=== PATIENT | male | born 1980 | race Caucasian/White ===

== ENCOUNTER 2019-01-30 11:34 | Emergency (ER) | payer SELFPAY ==
--- NOTE | 2019-01-30 11:40 | ER Report ---
History and Physical Time Seen By MD: 11:40 HPI/ROS 38 y/o male nonsmoker, but with a history of heavy alcohol use from age [age], presents to the emergency department with worsening ongoing mid epigastric pain and burning that started 2 days ago. Also states that he ate homemade burritos proximately 3 days ago which caused him to have vomiting and a diarrheal illness. The pain in his epigastrium started shortly after. He does feel nauseous, but describes more pain than nausea. He also admits to drinking 3 energy drinks/day starting about one month ago. He says his diet is decent, and he does not eat alot of fast food. No RUQ pain. He describes the pain and midepigastric and to the left. No trauma. Never diagnosed with varices. Stool h as been dark, but he has been taking pepto bismol for days. No hematemesis or hematochezia Allergies: Coded Allergies: No Known Drug Allergies (Unverified , 01/30/19) Reviewed Nurses Notes: Yes Old Medical Records Reviewed: Yes Hx Smoking: No Smoking Status: Never Smoker Exposure to Second Hand Smoke?: No Hx Substance Use Disorder: No Hx Alcohol Use: Yes Constitutional Vital Sign - Last 24 Hours 01/30/19 01/30/19 01/30/19 01/30/19 11:37 11:38 11:54 11:56 Temp 98.1 Pulse 47 56 Resp 16 20 B/P (MAP) 113/80 113/80 (91) 96/65 (75) Pulse Ox 98 98 O2 Delivery Room Air 01/30/19 12:00 B/P (MAP) 99/67 (78) Physical Exam General Appearance: The patient is alert, has no immediate need for airway protection and no current signs of toxicity. Eyes: Pupils equal and round no injection. Respiratory: Chest is non tender, lungs are clear to auscultation. Cardiac: regular rate and rhythm Gastrointestinal: Abdomen is soft with mild TTP at the midepigastric region, bowel sounds normal. Skin: No rashes or lesions. DIFFERENTIAL DIAGNOSIS: After history and physical exam differential diagnosis was considered for abdominal pain including but not limited to appendicitis, cholecystitis, gastritis and urinary tract infection. Medical Decision Making Data Points Result Diagram: 01/30/19 1148 01/30/19 1148 Laboratory Hematology Test 01/30/19 11:48 Red Blood Count 4.98 M/uL (4.00-5.60) Mean Corpuscular Volume 91.6 fL (80.0-96.0) Mean Corpuscular Hemoglobin 31.2 pg (26.0-33.0) Mean Corpuscular Hemoglobin Concent 34.0 g/dL (32.0-36.0) Red Cell Distribution Width 14.0 % (11.5-14.5) Mean Platelet Volume 7.7 fL (7.2-11.1) Neutrophils (%) (Auto) 64.1 % (39.4-72.5) Lymphocytes (%) (Auto) 26.4 % (17.6-49.6) Monocytes (%) (Auto) 7.4 % (4.1-12.4) Eosinophils (%) (Auto) 1.1 % (0.4-6.7) Basophils (%) (Auto) 1.0 % (0.3-1.4) Nucleated RBC Relative Count (auto) 0.0 /100WBC Neutrophils # (Auto) 2.5 K/uL (2.0-7.4) Lymphocytes # (Auto) 1.0 K/uL (1.3-3.6) Monocytes # (Auto) 0.3 K/uL (0.3-1.0) Eosinophils # (Auto) 0.0 K/uL (0.0-0.5) Basophils # (Auto) 0.0 K/uL (0.0-0.1) Nucleated RBC Absolute Count (auto) 0.00 K/uL Sodium Level 144 mmol/L (137-145) Potassium Level 3.7 mmol/L (3.5-5.0) Chloride Level 105 mmol/L (98-107) Carbon Dioxide Level 29 mmol/L (22-30) Blood Urea Nitrogen 14 mg/dl (9-21) Creatinine 0.90 mg/dl (0.66-1.25) Glomerular Filtration Rate Calc > 60.0 Random Glucose 92 mg/dl (75-110) Calcium Level 9.5 mg/dl (8.4-10.2) Total Bilirubin 0.5 mg/dl (0.2-1.3) Aspartate Amino Transf (AST/SGOT) 22 U/L (0-35) Alanine Aminotransferase (ALT/SGPT) 31 U/L (0-56) Alkaline Phosphatase 59 U/L (0-126) Total Protein 7.6 g/dl (6.3-8.2) Albumin 4.7 g/dl (3.5-5.0) Lipase 51 U/L (23-300) Chemistry Test 01/30/19 11:48 White Blood Count 4.0 k/uL (4.5-11.0) Red Blood Count 4.98 M/uL (4.00-5.60) Hemoglobin 15.5 g/dL (14.0-18.0) Hematocrit 45.6 % (42.0-52.0) Mean Corpuscular Volume 91.6 fL (80.0-96.0) Mean Corpuscular Hemoglobin 31.2 pg (26.0-33.0) Mean Corpuscular Hemoglobin Concent 34.0 g/dL (32.0-36.0) Red Cell Distribution Width 14.0 % (11.5-14.5) Platelet Count 236 K/uL (150-450) Mean Platelet Volume 7.7 fL (7.2-11.1) Neutrophils (%) (Auto) 64.1 % (39.4-72.5) Lymphocytes (%) (Auto) 26.4 % (17.6-49.6) Monocytes (%) (Auto) 7.4 % (4.1-12.4) Eosinophils (%) (Auto) 1.1 % (0.4-6.7) Basophils (%) (Auto) 1.0 % (0.3-1.4) Nucleated RBC Relative Count (auto) 0.0 /100WBC Neutrophils # (Auto) 2.5 K/uL (2.0-7.4) Lymphocytes # (Auto) 1.0 K/uL (1.3-3.6) Monocytes # (Auto) 0.3 K/uL (0.3-1.0) Eosinophils # (Auto) 0.0 K/uL (0.0-0.5) Basophils # (Auto) 0.0 K/uL (0.0-0.1) Nucleated RBC Absolute Count (auto) 0.00 K/uL Glomerular Filtration Rate Calc > 60.0 Calcium Level 9.5 mg/dl (8.4-10.2) Total Bilirubin 0.5 mg/dl (0.2-1.3) Aspartate Amino Transf (AST/SGOT) 22 U/L (0-35) Alanine Aminotransferase (ALT/SGPT) 31 U/L (0-56) Alkaline Phosphatase 59 U/L (0-126) Total Protein 7.6 g/dl (6.3-8.2) Albumin 4.7 g/dl (3.5-5.0) Lipase 51 U/L (23-300) ED Course/Re-evaluation ED Course No evidence of GI bleed. H/H normal and dark stool explained by pepto bismol. No evidence of gall bladder disease. No pancreatitis. No evidence of perforated ulcer. I spoke with the pt. about getting an endoscopy, but he does not have medical insurance. We spoke about trying to change his diet, and if symptoms persist, he will follow up for the endoscopy as an outpt. Decision to Disposition Date: Jan 30, 2019 Decision to Disposition Time: 15:15 Depart Departure Latest Vital Signs Vital Signs Date Time Temp Pulse Resp B/P (MAP) Pulse Ox O2 Delivery O2 Flow Rate FiO2 01/30/19 12:00 99/67 (78) 01/30/19 11:54 56 20 98 01/30/19 11:37 98.1 Room Air Impression: Primary Impression: Gastric erosions Condition: Improved Disposition: HOME OR SELF-CARE Patient Instructions: Gastroesophageal Reflux Disease (ED) Additional Instructions: Start taking: Zantac twice a day Nexium or Protonix as directed on the package Maalox twice a day Problem Qualifiers Primary Impression: Gastric erosions Gastric ulcer chronicity: unspecified ulcer chronicity Qualified Codes: K25.9 - Gastric ulcer, unspecified as acute or chronic, without hemorrhage or perforation GAYATHRI MONTOYA MD Jan 30, 2019 11:40
[2019-01-30] MEDS ORDERED: NS(*) 0.9% 1000 ML BAG 1,000 ML IV ONE (11:50)
[2019-01-30] MEDS ORDERED: ONDANSETRON 4 MG/2 ML VIAL IVP ONE (11:50)
[2019-01-30 12:00] LABS: PLATELET COUNT, AUTOMATED 236 K/uL (150-450)
[2019-01-30] MEDS ORDERED: FAMOTIDINE 10 MG/ML SDV IVP ONE (12:20)
[2019-01-30] MEDS ORDERED: PANTOPRAZOLE SOD(*)40 MG VIAL 80 MG in NS(*) 0.9% 100 ML BAG 100 ML IVPB ONE (12:20)
[2019-01-30] MEDS ORDERED: IOPAMIDOL 76% 100 ML INFUS BTL 100 ML ONE (12:39)
--- NOTE | 2019-01-30 13:43 | RADIOLOGY IMAGING REPORT ---
FACILITY: [facility] - [place] PATIENT NAME: Viral Sosa : 1980 MR: [id number] V: [id number] EXAM DATE: ORDERING PHYSICIAN: GAYATHRI MONTOYA TECHNOLOGIST: Location: [facility] Patient: Viral Sosa : 1980 Visit/Account:[id number] Date of Sevice: 01/30/2019 COMPUTED TOMOGRAPHY OF THE Abdomen and Pelvis with CONTRAST INDICATION: Severe mid epigastric pain with history of ulcer disease. TECHNIQUE: Contiguous axial 3.[address] images were obtained through the abdomen and pelvis after 75 c c [id number]. Coronal and sagittal reformatted images were submitted. COMPARISON: CT of abdomen January 12, 2008. FINDINGS: Lung bases: 3 mm nodule in the left lower lobe image 9 series 2. 4 mm nodule in the left lower lobe i mage 6 series 2. Liver and hepatic vasculature: 1.4 cm hypodense lesion posteriorly in the right lobe series 2 image 53 is similar to the 1.5 cm lesion in the right lobe on series 2 image 44. Both may have peripheral, nodular enhancement, but this is not well characterized. Gallbladder and bile ducts: Normal Spleen: Normal Pancreas: Normal Adrenals: Normal Kidneys, ureters and bladder: Nonobstructive 3 mm right renal calculus. Small simple appearing cyst at the right kidney. 2 mm nonobstructive left renal calculus. Subcentimeter lesion in the left kidney is likely a cyst. Normal-appearing bladder. There are multiple phleboliths in the low pelvis. Retroperitoneum and aorta: Normal caliber aorta. GI tract, mesentery and peritoneum: No free air or evidence of viscus perforation. There may be wall thickening along the course of the gastric outlet. Prostate: Unremarkable Bones and soft tissues: No acute osseous abnormality. IMPRESSION: 1. Suggestion of wall thickening along the gastric outlet is poorly characterized by CT. Consider end oscopy depending on clinical context. 2. No evidence of viscus perforation. 3. Nonobstructive small bilateral renal calculi. 4. The 2 indeterminate liver lesions measuring roughly 1.5 cm in diameter are most likely hemangiomas . One of the following dose optimization techniques was utilized in the performance of this exam: Autom ated exposure control; adjustment of the mA and/or kV according to the patient's size; or use of an i terative reconstruction technique. Specific details can be referenced in the facility's radiology C T exam operational policy. Report Dictated By: Mariluz Morse MD at 01/30/2019 1:25 PM Report E-Signed By: Mariluz Morse MD at 01/30/2019 1:39 PM [id number]
[2019-01-30] MEDS ORDERED: LIDOCAINE 2% VISC SLN 15ML UDC PO ONE (14:25)
[2019-01-30] MEDS ORDERED: MORPHINE 4 MG/ML SDV IVP ONE (14:25)
[2019-01-30] MEDS ORDERED: MAG HYD/AL HYD/SIMETH 30ML UDC PO ONE (14:25)
[2019-01-30 15:00] VITALS: BP 98/62
[2019-01-30] MEDS ORDERED: DICYCLOMINE HCL 10 MG CAP PO ONE (15:00)
== END 2019-01-30 15:34 | disposition home or self-care (01) ==
LOC: ER 11:57
DX: K25.9 Gastric ulcer, unspecified as acute or chronic, without hemorrhage or perforation (principal)
CPT/HCPCS: 74177; 83690; 85025; 96361; 96365; 96375; 99284; C9113; J2270; J2405; J7030; J7050; Q9967; S0028; 82040; 82247; 82310; 82374; 82435; 82565; 82947; 84075; 84132; 84155; 84295; 84450; 84460; 84520